=== PATIENT | female | born 1995 | race Two or more races ===

== ENCOUNTER 2024-12-17 08:50 | Day surgery (SDC) | payer MEDICAID, SELFPAY ==
[2024-12-16 09:29] VITALS: BMI 34.1
[2024-12-16 10:23] LABS: Basophils % (Auto) 1 % (0-2.5); Eosinophils # (Auto) 0.2 Thou/mm3 (0.0-0.5); Eosinophils % (Auto) 4 % (0-10); Hematocrit 29.9 % (36.0-46.0); Hemoglobin 9.7 g/dL (12.0-16.0); Immature Granulocytes % (Auto) 0 % (0-0); Immature Granulocytes Auto 0.01 Thou/mm3 (0.00-0.00); Lymphocytes # (Auto) 1.9 Thou/mm3 (1.0-4.8); Lymphocytes % (Auto) 34 % (10-50); Mean Corpuscular HGB Conc 32.4 g/dl (31.0-37.0); Mean Corpuscular Hemoglobin 23.5 pg (25.0-35.0); Mean Corpuscular Volume 73 fL (80-100); Monocytes # (Auto) 0.5 Thou/mm3 (0.0-0.8); Monocytes % (Auto) 9 % (0-12); Neutrophils % (Auto) 52 % (37-80); Nucleated Red Blood Cell % 0 /100 WBC (0); Platelet Count 299 Thou/mm3 (140-440); RDW Standard Deviation 39.2 fL (36.4-46.3); Red Blood Count 4.12 Miln/mm3 (4.00-5.20); White Blood Count 5.7 Thou/mm3 (3.6-11.0)
[2024-12-16 10:40] LABS: Alanine Aminotransferase 14 U/L (10-49); Albumin, Serum 4.2 gm/dL (3.5-5.0); Albumin/Globulin Ratio 1.6 (1.2-2.2); Alkaline Phosphatase 64 U/L (46-116); Anion Gap 8 (7-16); Aspartate Amino Transferase 33 U/L (0-34); BUN/Creatinine Ratio 13 Ratio (12-20); Bilirubin,Total 0.3 mg/dL (0.3-1.2); Blood Urea Nitrogen 9 mg/dL (9-23); Calcium 8.5 mg/dL (8.3-10.6); Calcium (Corrected) 8.5 mg/dL (8.5-10.1); Carbon Dioxide 27.2 mMol/L (20.0-31.0); Chloride 106 mMol/L (98-107); Creatinine (Component) 0.7 mg/dL (0.6-1.3); Estimated Creatinine Clearance 137.1 mL/min (>60); Globulin 2.6 gm/dL (2.3-3.5); Glucose 103 mg/dL (74-106); Osmolality,Calculated 279 (275-295); Potassium 4.2 mMol/L (3.4-5.1); Sodium 141 mMol/L (136-145); Total Protein 6.8 gm/dL (5.7-8.2); eGFR > 60 See Note
[2024-12-16 11:20] LABS: Hepatitis C Antibody Non Reactive (Non React)
[2024-12-16 11:21] LABS: Hepatitis A Antibody IgM Non Reactive (Non React); Hepatitis B Core Antibody IgM Non Reactive (Non React); Hepatitis B Surface Antigen Non Reactive (Non React); Hepatitis C Antibody Non Reactive (Non React)
[2024-12-16 13:48] LABS: HCG,Qualitative Serum Negative
[2024-12-16 14:11] LABS: HIV (1&2) Antibody Rapid Non-Reactive
[2024-12-17] VITALS (12 sets, daily range): BP systolic 114–140; BP diastolic 57–76; PULSE 46–72; RESP 12–20; TEMP 36.3–36.8; O2SAT 99–100; BMI 35.1
--- NOTE | 2024-12-17 09:35 | CHAP ---
Prayed with patient before the procedure.
[2024-12-17] MEDS: RINGERS LACTATED 1000 ML 1,000 ML 20 ML IV (10:00)
--- NOTE | 2024-12-17 10:55 | PD.GYNHP ---
Documentation for date of: 12/17/24 JUNIOR ACCOUNTANT BOOKKEEPER - HPI History of Present Illness History of present illness: Ms. BOCANEGRA is a 29 year old female is admitted for diagnostic hysteroscopy for missing IUD string and unsuccessful retrieval attempted twice in the office. Patient did have an ultrasound showing impacted IUD in myometrium. Patient understands the risk of perforation during the procedure. Denies any other surgical medical history Meds Home Medications and Allergies Home Medications ?Medication ?Instructions ?Recorded ?Confirmed ?Type diclofenac sodium 50 mg 50 mg PO BID PRN pain 12/16/24 12/16/24 History tablet,delayed release methocarbamol 500 mg tablet 500 mg PO BID PRN pain (scale 12/16/24 12/16/24 History score 4-6) Allergies Allergy/AdvReac Type Severity Reaction Status Date / Time No Known Allergies Allergy Verified 12/17/24 10:03 Exam - JUNIOR ACCOUNTANT BOOKKEEPER Vital Signs Temp Pulse Resp BP Pulse Ox 97.6 F 62 13 128/65 99 12/17/24 09:33 12/17/24 09:33 12/17/24 09:33 12/17/24 09:33 12/17/24 09:33 Constitutional Constitutional: no acute distress Routine HEENT Exam Head: Present normocephalic and atraumatic Eye: Present EOMI and PERRL ENT: Present mucous membranes moist Routine Neck Exam Neck: Present supple and trachea midline Routine Respiratory Exam Respiratory: Present chest non-tender, lungs clear, normal breath sounds and no resp distress Routine Cardiovascular Exam Cardiovascular: Present RRR Routine Abdominal Exam Abdominal: Present soft and normoactive bowel sounds Routine Extremities Exam Extremities: Present full ROM Routine Skin Exam Skin: Present intact and dry Routine Neurological Exam Neurological: Present alert, oriented X3 and CN II-XII intact Routine Psychiatric Exam Psychiatric: Present normal affect and normal thought process JUNIOR ACCOUNTANT BOOKKEEPER - Results Labs 12/16/24 10:05 12/16/24 10:05 Impressions Impression: 29-year-old para 3 admitted for diagnostic hysteroscopy, IUD removal under hysteroscopy guidance Unsuccessful retrieval of IUD removal in the office Impacted IUD seen in ultrasound imaging Assessment and Plan Additional Assessment & Plan Additional Plan: Diagnostic hysteroscopy IUD removal Quality Measures Quality Measures VTE prophylaxis
--- NOTE | 2024-12-17 11:50 | SUR.PHASEI ---
1150 Patient arrived to recovery resting comfortably in [facility], on oxygen 6L via oxy mask, breathing unlabored, vital signs stable, denies pain, dressing intact to vaginal area; peripad, no bleeding noted, denies nausea, report received from Lucho MASON and Dr. Velez
--- NOTE | 2024-12-17 11:59 | ESOP_ITS ---
Operative Note - HUMAN RESOURCES ASSOCIATE Procedure Date of procedure: 12/17/24 Procedure Performed: Hysteroscopic guided IUD removal Indication: IUD impaction in myometrium Unsuccessful retrieval in the office Pre-Op diagnosis: Same Post-Op diagnosis: Same Anesthesia type: General Procedure description: The patient was seen prior to surgery. The potential benefits and risks of the procedure, the likelihood of success, and the problems related to recuperation have been discussed with patient who agrees to proceed. The possible results of nontreatment and significant alternatives to the proposed procedure have also been explained, along with the risks and benefits of the alternatives. Risks and benefits of chosen anesthetic/sedation and possible use of blood/blood products (if appropriate) were discussed.The patient was identified as Felecia Palomino and the procedure verified. A time out was held reviewing the patient identifiers, procedure planned and allergies. At this point the procedure was begun. The patient was positioned and prepped in routine fashion in the dorsal lithotomy position using yellowfin stirups. On examination under anesthesia,the uterus was retroverted to a normal size. Bladder was drained by catheter. A weighted [facility]. A tressa was used to expose the anterior lip of the cervix which was then grasped by a single tooth tenaculum.The cervix was then very easily dilated to a size 6 Hegar dilator. The hysteroscope was then placed under direct visualization. Warm lactated Ringer's was used as a distention medium. The patient's uterus was found to have the IUD. 1 arm of IUD was impacted under a bridge of myometrial tissue. pictures were taken. The bridge of tissue was divided using hysteroscopic scissors and the IUD was removed and completeness there was minimal bleeding noted and tenaculum was removed. Hemostasis was acheived with a ringed forcep on the anterior cervix. Estimated blood loss (ml): 5 Complications: none Surgical staff Operation Date: 12/17/24 11:30 <No data on this case meets the specified criteria> Diagnosis Problem List Completed Was Problem List Reviewed/Reconciled?: Yes
--- NOTE | 2024-12-17 12:33 | SUR.PHASEII ---
pt awake, alert, able to follow commands, breathing unlabored, peripad in place with scant amount of pinkish red drainage, VS stable, report from Gladys Petersen RN
--- NOTE | 2024-12-17 12:33 | SUR.PHASEII ---
1233 Report given to Gladys Aranda RN
--- NOTE | 2024-12-17 13:14 | SUR.PHASEII ---
pt awake, alert, able to follow commands, breathing unalbored, peripad in place with scant amount of pinkish red drainage, VS stable, pt able to tolerate oral fluids without difficulty swallowing or n/v, report to Gladys Petersen RN
--- NOTE | 2024-12-17 13:14 | SUR.PHASEII ---
Report received from Gladys Aranda RN
--- NOTE | 2024-12-17 14:07 | SUR.PHASEII ---
1407 Patient meets discharge criteria from recovery, awake and alert, breathing unlabored, vital signs stable, denies pain, dressing intact; no bleeding noted, ate a jello; tolerated well, denies nausea, patient voided in the restroom prior to discharge, discharge instructions given to patient and patients with the assistance of the telephone interpreter deaf Neeta ID#[id number], patients signed discharge instructions. Patient given all her belongings prior to discharge, transported via wheelchair and left in a private vehicle.
== END 2024-12-17 14:07 | disposition home or self-care (01) ==
PROVIDERS: PCP Family Medicine; Referring Provider Student in an Organized Health Care Education/Training Program; Visit Provider Student in an Organized Health Care Education/Training Program
PROC: 0UJD8ZZ Inspection of Uterus and Cervix, Via Natural or Artificial Opening Endoscopic (ICD-10-PCS; CPT 58555; principal; 2024-12-17 11:15)
DX: T83.39XA Other mechanical complication of intrauterine contraceptive device, initial encounter (principal)
CPT/HCPCS: 58562; 36415; 80053; 80074; 84703; 85025; 86703; 86803; 86850; 86900; 86901; A4217; A4649; J0131; J1100; J1885; J2250; J2405; J2704; J3010; J7120

== ENCOUNTER 2025-02-05 09:02 | Outpatient (RCR) | payer MEDICAID, SELFPAY ==
[2025-02-05 09:57] LABS: HCG Qualitative,Urine Negative
--- NOTE | 2025-02-05 10:00 | XR_ITS ---
Examination: HIDA, hepatobiliary radioisotope scan Gallbladder ejection fraction study. Date and time of exam: February 05, 2025 2157 hours INDICATIONS: Severe abdominal pain episodes May and July 2024 Technique: 6 mCi of 99M Hepatolite administered. Serial imaging then obtained from immediate through 60 minutes. 2.0 mcg selective catheter Kinevac administered for gallbladder ejection fraction study. Findings: Radioisotope activity within the liver is reasonably homogenous. Gallbladder, common bile duct small bowel activity noted Impression: Gallbladder activity Abnormal gallbladder ejection fraction, 8%, normal greater than 35%
== END 2025-02-10 23:59 | disposition home or self-care (01) ==
LOC: SNUC 09:02
PROVIDERS: PCP Physician Assistant; Referring Provider Physician Assistant; Visit Provider Physician Assistant
DX: R93.2 Abnormal findings on diagnostic imaging of liver and biliary tract (principal); Z32.00 Encounter for pregnancy test, result unknown
CPT/HCPCS: 78227; 81025; A9537; J2805